=== PATIENT | female | born 1985 | race Caucasian/White ===

== ENCOUNTER 2020-10-15 10:07 | Emergency (ER) | payer BC, MEDICAID ==
[~2020-10-15] VITALS: Ht 167.6 cm; Wt 57.3 kg
[2020-10-15 10:15] VITALS: BP 121/83
== END 2020-10-15 11:50 | disposition home or self-care (01) ==
LOC: ER 10:08
DX: G89.29 Other chronic pain (principal); M25.571 Pain in right ankle and joints of right foot; Z88.5 Allergy status to narcotic agent
CPT/HCPCS: 99282

== ENCOUNTER 2024-05-03 12:10 | Emergency (ER) | payer MEDICAID, OTHER ==
[~2024-05-03] VITALS: Ht 167.6 cm; Wt 57.1 kg
[2024-05-03] MEDS: dexamethasone sod phosphate 10mg/ml inj PO STA (14:24)
[2024-05-03] MEDS: ketorolac trometh. 30mg/ml inj. IM ONE (14:27)
[2024-05-03 14:50] VITALS: BP 155/112; PULSE 77; RESP 15; TEMP 97.7; O2SAT 100
== END 2024-05-03 14:51 | disposition left against medical advice (07) ==
LOC: ER 12:10
DX: M54.50 Low back pain, unspecified (principal); Z88.8 Allergy status to other drugs, medicaments and biological substances
CPT/HCPCS: 96372; 99283; J1100; J1885